=== PATIENT | female | born 1980 | race Caucasian/White ===

== ENCOUNTER 2017-12-17 04:11 | Emergency (ER) | payer BC ==
[2017-12-17 04:21] VITALS: O2SAT 97
[2017-12-17] MEDS ORDERED: Zofran 4 MG/2 ML VIAL IV ONE (04:22)
[2017-12-17] MEDS ORDERED: Sodium Chloride 0.9% 1000 ML 1,000 ML IV STA (04:22)
[2017-12-17] MEDS ORDERED: TORAdol 30 mg Injection IV ONE (04:22)
[2017-12-17] MEDS ORDERED: Sodium Chloride 0.9% 1000 ML 1,000 ML ONE (04:27)
[2017-12-17] MEDS ORDERED: TORAdol 30 mg Injection ONE (04:27)
[2017-12-17] MEDS ORDERED: Zofran 4 MG/2 ML VIAL ONE (04:27)
--- NOTE | 2017-12-17 04:29 | ERPHSYRPT ---
- History of Present Illness Time Seen by Provider: 12/17/17 04:22 Historian: patient Exam Limitations: no limitations Patient Subjective Stated Complaint: Left Flank Pain Triage Nursing Assessment: Pt presents to the ED with complaints of left flank pain beginning wednesday. Pt states she has been unable to sleep tonight due to pain. Pt states she has been treated outpatient for complaint by PCP. Pt denies fevers or other complaints. Pt is A&O x4, skin PWD, no distress noted. Physician History: Pt started c/o left flank pain 2 days ago, nauseated, had few episodes of diarrhea. She was seen in her doctor's office yesterday, KUB revealed 5 mm left UPJ stone. She started c/o more pain this morning, denies fever, chills, vomiting or urinary complaints, her last MP was one week ago, denies vaginal bleeding. Timing/Duration: day(s) (2) Activities at Onset: none Quality: sharpness Abdominal Pain Onset Location: flank (left) Severity of Pain-Max: severe Severity of Pain-Current: severe Modifying Factors: Improves With: nothing Associated Symptoms: diarrhea, nausea Previous symptoms: no prior history Allergies/Adverse Reactions: No Known Drug Allergies Allergy (Unverified 12/17/17 04:25) Hx Tetanus, Diphtheria Vaccination/Date Given: Yes Hx Influenza Vaccination/Date Given: Yes Hx Pneumococcal Vaccination/Date Given: No Immunizations Up to Date: No - Review of Systems Constitutional: No Symptoms Abdominal/Gastrointestinal: Nausea, Diarrhea Genitourinary Symptoms: Flank Pain All Other Systems: Reviewed and Negative - Past Medical History Pertinent Past Medical History: No Neurological History: No Pertinent History ENT History: No Pertinent History Cardiac History: Hypertension Respiratory History: No Pertinent History Endocrine Medical History: No Pertinent History Musculoskeletal History: No Pertinent History GI Medical History: No Pertinent History History: No Pertinent History Psycho-Social History: Anxiety, Depression Female Reproductive Disorders: No Pertinent History - Past Surgical History Past Surgical History: Yes Neuro Surgical History: No Pertinent History Cardiac: No Pertinent History Respiratory: No Pertinent History Gastrointestinal: No Pertinent History Genitourinary: No Pertinent History Musculoskeletal: No Pertinent History Female Surgical History: Section - Social History Smoking Status: Former smoker Exposure to second hand smoke: No Drug Use: none Patient Lives Alone: No - Female History Hx Last Menstrual Period: 12/10/2017 Hx Now: No - Nursing Vital Signs Nursing Vital Signs: Initial Vital Signs Temperature 98.4 F 12/17/17 04:17 Pulse Rate 99 H 12/17/17 04:17 Respiratory Rate 17 12/17/17 04:17 Blood Pressure 146/97 12/17/17 04:17 O2 Sat by Pulse Oximetry 97 12/17/17 04:17 Pain Scale Pain Intensity [Left Flank] 8 Pain Intensity 3 - Physical Exam General Appearance: no apparent distress Eye Exam: eyes nml inspection Ears, Nose, Throat Exam: normal ENT inspection Neck Exam: normal inspection Respiratory Exam: normal breath sounds, lungs clear Cardiovascular Exam: regular rate/rhythm, normal heart sounds, normal peripheral pulses Gastrointestinal/Abdomen Exam: soft, normal bowel sounds, tenderness (LUQ, milkd ) Back Exam: CVA tenderness (left) Extremity Exam: normal inspection Neurologic Exam: alert, oriented x 3 Skin Exam: normal color, warm, dry Lymphatic Exam: No adenopathy SpO2 Interpretation: normal SpO2: 97 Oxygen Delivery: Room Air - CT Exams Abdomen/Pelvis CT Interpretation: Other (Left hydronephrosis, 5x6x6 mm UPJ stone, fluid stranding around left kidney.) Ordered Tests: Active Orders 24 hr Category Date Time Status IV Insertion STAT Care 12/17/17 04:22 Active ABDOMEN AND PELVIS W/0 CONTRAS [CT] Stat Exams 12/17/17 04:23 Taken CBC W DIFF Stat Lab 12/17/17 04:22 Completed CMP Stat Lab 12/17/17 04:22 Completed HCG,QUALITATIVE URINE Stat Lab 12/17/17 04:32 Completed LIPASE Stat Lab 12/17/17 04:22 Completed UA W/ MICROSCOPIC Stat Lab 12/17/17 04:32 Completed Medication Summary Discontinued Medications Generic Name Dose Route Start Last Admin Trade Name Freq PRN Reason Stop Dose Admin Sodium Chloride 1,000 mls @ 999 mls/hr 12/17/17 04:22 12/17/17 04:36 Sodium Chloride 0.9% 1000 Ml IV 12/17/17 05:22 999 mls/hr .Q1H1M STA Administration Sodium Chloride Confirm 12/17/17 04:27 Sodium Chloride 0.9% 1000 Ml Administered 12/17/17 04:28 Dose 1,000 mls @ ud .ROUTE .STK-MED ONE Ketorolac Tromethamine 30 mg 12/17/17 04:22 12/17/17 04:35 Toradol 30 Mg Injection IV 12/17/17 04:23 30 mg STAT ONE Administration Ketorolac Tromethamine Confirm 12/17/17 04:27 Toradol 30 Mg Injection Administered 12/17/17 04:28 Dose 30 mg .ROUTE .STK-MED ONE Ondansetron HCl 4 mg 12/17/17 04:22 12/17/17 04:35 Zofran 4 Mg/2 Ml Vial IV 12/17/17 04:23 4 mg STAT ONE Administration Ondansetron HCl Confirm 12/17/17 04:27 Zofran 4 Mg/2 Ml Vial Administered 12/17/17 04:28 Dose 4 mg .ROUTE .STK-MED ONE Lab/Rad Data: Laboratory Result Diagrams 12/17/17 04:22 12/17/17 04:22 Laboratory Results 12/17/17 12/17/17 12/17/17 Range/Units 04:32 04:32 04:22 WBC (4.0-10.5) K/mm3 RBC (4.1-5.4) M/mm3 Hgb (12.0-16.0) gm/dl Hct (35-47) % MCV (78-100) fl MCH (26-32) pg MCHC (32-36) g/dl RDW (11.5-14.0) % Plt Count (150-450) K/mm3 MPV (6-9.5) fl Gran % (36.0-66.0) % Lymphocytes % (24.0-44.0) % Monocytes % (0.0-12.0) % Eosinophils % (0.00-5.0) % Basophils % (0.0-0.4) % Basophils # (0-0.4) Sodium 138 (136-145) mEq/L Potassium 3.7 (3.5-5.1) mEq/L Chloride 104 (98-107) mEq/L Carbon Dioxide 21.9 (21-32) mEq/L Anion Gap 15.8 H (5-15) MEQ/L BUN 14 (9-20) mg/dL Creatinine 1.21 (0.55-1.30) mg/dl Estimated GFR 54 ML/MIN Glucose 110 (70-110) MG/DL Calcium 9.0 (8.5-10.1) mg/dL Total Bilirubin 0.30 (0.2-1.0) mg/dL AST 27 (15-37) U/L ALT 21 (12-78) U/L Alkaline Phosphatase 96 (46-116) U/L Serum Total Protein 8.3 H (6.4-8.2) gm/dL Albumin 4.5 (3.4-5.0) g/dL Lipase 141 (73-393) U/L Ur Collection Type VOID Urine Color LT.YELLOW (YELLOW) Urine Appearance CLEAR (CLEAR) Urine pH 8.0 (5-6) Ur Specific [place] 1.005 (1.005-1.025) Urine Protein NEGATIVE (Negative) Urine Ketones NEGATIVE (NEGATIVE) Urine Blood 50 (0-5) Neftali/ul Urine Nitrite NEGATIVE (NEGATIVE) Urine Bilirubin NEGATIVE (NEGATIVE) Urine Urobilinogen NORMAL (0-1) mg/dL Ur Leukocyte Esterase NEGATIVE (NEGATIVE) Urine Microscopic RBC 5-10 (0-2) /HPF Urine Microscopic WBC 0-2 (0-5) /HPF Ur Epithelial Cells FEW (FEW) /HPF Urine Bacteria FEW (NEGATIVE) /HPF Urine Culture Reflexed NO (NO) Urine Glucose NEGATIVE (NEGATIVE) mg/dL Urine HCG, Qual NEGATIVE (Negative) Specimen Received 12/17/17 0445 12/17/17 Range/Units 04:22 WBC 13.9 H (4.0-10.5) K/mm3 RBC 5.32 (4.1-5.4) M/mm3 Hgb 14.5 (12.0-16.0) gm/dl Hct 44.4 (35-47) % MCV 83.5 (78-100) fl MCH 27.3 (26-32) pg MCHC 32.7 (32-36) g/dl RDW 14.9 H (11.5-14.0) % Plt Count 263 (150-450) K/mm3 MPV 11.3 H (6-9.5) fl Gran % 82.8 H (36.0-66.0) % Lymphocytes % 12.6 L (24.0-44.0) % Monocytes % 3.8 (0.0-12.0) % Eosinophils % 0.6 (0.00-5.0) % Basophils % 0.2 (0.0-0.4) % Basophils # 0.03 (0-0.4) Sodium (136-145) mEq/L Potassium (3.5-5.1) mEq/L Chloride (98-107) mEq/L Carbon Dioxide (21-32) mEq/L Anion Gap (5-15) MEQ/L BUN (9-20) mg/dL Creatinine (0.55-1.30) mg/dl Estimated GFR ML/MIN Glucose (70-110) MG/DL Calcium (8.5-10.1) mg/dL Total Bilirubin (0.2-1.0) mg/dL AST (15-37) U/L ALT (12-78) U/L Alkaline Phosphatase (46-116) U/L Serum Total Protein (6.4-8.2) gm/dL Albumin (3.4-5.0) g/dL Lipase (73-393) U/L Ur Collection Type Urine Color (YELLOW) Urine Appearance (CLEAR) Urine pH (5-6) Ur Specific [place] (1.005-1.025) Urine Protein (Negative) Urine Ketones (NEGATIVE) Urine Blood (0-5) Neftali/ul Urine Nitrite (NEGATIVE) Urine Bilirubin (NEGATIVE) Urine Urobilinogen (0-1) mg/dL Ur Leukocyte Esterase (NEGATIVE) Urine Microscopic RBC (0-2) /HPF Urine Microscopic WBC (0-5) /HPF Ur Epithelial Cells (FEW) /HPF Urine Bacteria (NEGATIVE) /HPF Urine Culture Reflexed (NO) Urine Glucose (NEGATIVE) mg/dL Urine HCG, Qual (Negative) Specimen Received - Progress Progress: improved Progress Note: 12/17/17 06:03 Improved, pain free, afebrile, denies nausea, stable. I discussed the CT and lab results with her, she states, she has follow up appointment in her practitioner's office today and they are arranging an appointment with Dr Ospina Urologist. I will discharge her on Flomax, with instructions, to follow up with her doctor and Urologist, and return if severe pain, vomiting, or fever> 101 F! - Departure Time of Disposition: 06:06 Departure Disposition: Home Clinical Impression: Ureteral stone with hydronephrosis Clinical Impression: (Ruled Out): Ureteral stone Condition: Stable Critical Care Time: No Referrals: MAURY DELUNA [Primary Care Provider] - Instructions: Renal Colic Additional Instructions: Rest x 2-3 days, drink plenty of fluids, return if severe pain, vomiting, fever > 101F!, strain every urine and follow up with your practitioner and Urologist! Forms: Work/School Release Form Prescriptions: Ondansetron [Zofran Odt] 4 mg PO Q6H PRN PRN 5 Days #10 tab.rapdis PRN Reason: Nausea/Vomiting Tamsulosin HCl 0.4 mg [Flomax 0.4 MG] 5 mg PO DAILY #5 cap
[2017-12-17 04:47] LABS: BASOPHIL % 0.2 % (0.0-0.4); Basophil (Absolute #) 0.03 (0-0.4); Eosinophil % 0.6 % (0.00-5.0); Eosinophil (Absolute #) 0.08 (0-0.5); Granulocyte Absolute (ANC) 11.47 (1.4-6.9); Granulocytes % 82.8 % (36.0-66.0); Hematocrit 44.4 % (35-47); Hemoglobin 14.5 gm/dl (12.0-16.0); Lymphocyte (Absolute #) 1.75 (1.0-4.6); Lymphocytes % 12.6 % (24.0-44.0); Mean Cell Volume 83.5 fl (78-100); Mean Corpuscular Hemoglobin 27.3 pg (26-32); Mean Corpuscular Hgb Concent. 32.7 g/dl (32-36); Mean Platelet Volume 11.3 fl (6-9.5); Monocyte (Absolute #) 0.53 (0.0-1.3); Monocytes % 3.8 % (0.0-12.0); Platelet Count 263 K/mm3 (150-450); Red Blood Count 5.32 M/mm3 (4.1-5.4); Red Cell Distribution Width 14.9 % (11.5-14.0); White Blood Count 13.9 K/mm3 (4.0-10.5)
[2017-12-17 04:52] LABS: Appearance CLEAR (CLEAR); Bilirubin NEGATIVE (NEGATIVE); Blood 50 Ery/ul (0-5); Glucose NEGATIVE (NEGATIVE); Ketones NEGATIVE (NEGATIVE); Leukocyte Esterase NEGATIVE (NEGATIVE); Nitrite NEGATIVE (NEGATIVE); Protein,Urine Dip NEGATIVE (Negative); Specific Gravity 1.005 (1.005-1.025); Urobilinogen NORMAL mg/dL (0-1)
[2017-12-17 04:53] LABS: Bacteria FEW /HPF (NEGATIVE); Epithelial Cells FEW /HPF (FEW); WBC 0-2 /HPF (0-5)
[2017-12-17 05:04] LABS: ALBUMIN 4.5 g/dL (3.4-5.0); ANION GAP 15.8 MEQ/L (5-15); BILIRUBIN,TOTAL 0.3 mg/dL (0.2-1.0); Carbon Dioxide 21.9 mEq/L (21-32); Creatinine 1 1.21 mg/dl (0.55-1.30); Potassium 3.7 mEq/L (3.5-5.1); Total Protein 8.3 gm/dL (6.4-8.2)
[2017-12-17 05:37] VITALS: BP 116/79; PULSE 66
[2017-12-17] MEDS ORDERED: Flomax 0.4 MG PO ONE (06:05)
[2017-12-17] MEDS ORDERED: Flomax 0.4 MG ONE (06:11)
--- NOTE | 2017-12-17 09:16 | XRAY ---
Indication: Left flank pain. Multiple contiguous axial images obtained through the abdomen and pelvis without contrast as ordered. Comparison: None Lung bases demonstrates minimal bibasilar dependent atelectasis. No infiltrate or effusion. Heart is not enlarged. 5 mm proximal left ureteral calculus, approximately the L2 level. Left kidney is mildly hydronephrotic with minimal perinephric stranding consistent with partial obstructive uropathy. Additional bilateral punctate calculi. No evidence for right-sided obstructive uropathy. Noncontrasted stomach and bowel loops appear nonobstructed. Normal appendix. No free fluid/air. Mild fatty liver. Remaining liver, gallbladder, spleen, pancreas, adrenal glands, kidneys, ureters, bladder, uterus, and aorta appear unremarkable for noncontrast exam. Osseous structures intact with minimal double curvature scoliosis. Impression: 1. 5 mm proximal left ureteral calculus producing partial obstruction as detailed. Calculus corresponds to the KUB finding one day earlier. Additional bilateral renal micro-calculi. 2. Mild fatty liver. Comment: Preliminary interpretation was made by [facility]. No critical discrepancy. CTDI 28.63
== END 2017-12-17 06:18 | disposition home or self-care (01) ==
LOC: ED 04:11
DX: N13.2 Hydronephrosis with renal and ureteral calculous obstruction (principal); R10.9 Unspecified abdominal pain; R19.7 Diarrhea, unspecified; R11.0 Nausea
CPT/HCPCS: 36000; 36415; 74176; 80053; 81000; 83690; 84703; 85025; 96360; 96374; 99284; J1885; J2405; A9270-GY

== ENCOUNTER 2023-11-11 23:44 | Emergency (ER) | payer BC ==
--- NOTE | 2023-11-11 23:56 | ERPHSYRPT ---
- History of Present Illness Time Seen by Provider: 11/11/23 23:55 Historian: patient Exam Limitations: no limitations Physician History: 43 y/o white female patient of DAMIAN Lowe, presents with 2 day h/o foul odor urine, frequency, urgency and dysuria and nocturia. right flank pain today. sx not better. h/o ureteolithiasis on left and pyelonephritis in the past. no cp. no sob. no v/d. h/o dm, htn, hyperlipidemia and anxiety. Quality: aching Abdominal Pain Onset Location: flank (right) Pain Radiation: no radiation Severity of Pain-Max: moderate Severity of Pain-Current: mild Associated Symptoms: No chest pain, No diarrhea, No fever/chills, No nausea, No shortness of breath, No vomiting Previous symptoms: same symptoms as today, no recent treatment Allergies/Adverse Reactions: No Known Drug Allergies Allergy (Verified 11/11/23 23:57) Home Medications: Atorvastatin Calcium 20 mg PO HS 11/11/23 [History] Desvenlafaxine [Desvenlafaxine ER] 50 mg PO HS 11/11/23 [History] Labetalol HCl 100 mg [Trandate 100 MG] 10 mg PO HS 11/11/23 [History] Tirzepatide [Mounjaro] 0.5 ml SQ WEEKLY 11/11/23 [History] Hx Tetanus, Diphtheria Vaccination/Date Given: Yes Hx Influenza Vaccination/Date Given: Yes Hx Pneumococcal Vaccination/Date Given: No Travel Risk - International Travel Have you traveled outside of the country in past 3 weeks: No - Coronavirus Screening Are you exhibiting any of the following symptoms?: No Close contact with a COVID-19 positive Pt in past 14-21 Days: No - Review of Systems Constitutional: No Symptoms Eyes: No Symptoms Ears, Nose, & Throat: No Symptoms Respiratory: No Symptoms Cardiac: No Symptoms Abdominal/Gastrointestinal: Abdominal Pain, No Nausea Genitourinary Symptoms: Dysuria, Frequency, Urgency, Flank Pain Musculoskeletal: No Symptoms Skin: No Symptoms Neurological: No Symptoms Psychological: No Symptoms Endocrine: No Symptoms Hematologic/Lymphatic: No Symptoms Immunological/Allergic: No Symptoms All Other Systems: Reviewed and Negative - Past Medical History Pertinent Past Medical History: No Neurological History: No Pertinent History ENT History: No Pertinent History Cardiac History: Hypertension Respiratory History: No Pertinent History Endocrine Medical History: No Pertinent History Musculoskeletal History: No Pertinent History GI Medical History: No Pertinent History History: No Pertinent History Psycho-Social History: Anxiety, Depression Female Reproductive Disorders: No Pertinent History - Past Surgical History Past Surgical History: Yes Neuro Surgical History: No Pertinent History Cardiac: No Pertinent History Respiratory: No Pertinent History Gastrointestinal: No Pertinent History Genitourinary: No Pertinent History Musculoskeletal: No Pertinent History Female Surgical History: Section - Social History Smoking Status: Former smoker Exposure to second hand smoke: No Drug Use: none Patient Lives Alone: No - Nursing Vital Signs Nursing Vital Signs: Initial Vital Signs Pulse Rate 110 H 11/12/23 00:00 Respiratory Rate 18 11/12/23 00:00 Blood Pressure 127/89 11/12/23 00:00 O2 Sat by Pulse Oximetry 100 11/12/23 00:00 Pain Scale Pain Intensity 4 - Physical Exam General Appearance: no apparent distress, alert, anxiety Eye Exam: PERRL/EOMI, eyes nml inspection Ears, Nose, Throat Exam: normal ENT inspection, moist mucous membranes Neck Exam: normal inspection, non-tender, supple, full range of motion Respiratory Exam: normal breath sounds, lungs clear, airway intact, No chest tenderness, No respiratory distress Cardiovascular Exam: regular rate/rhythm, normal heart sounds, normal peripheral pulses Gastrointestinal/Abdomen Exam: soft, normal bowel sounds, tenderness (suprapubic), guarding, No rebound Pelvic Exam: not done Rectal Exam: not done Back Exam: normal inspection, normal range of motion, CVA tenderness (right) Neurologic Exam: alert, oriented x 3, cooperative, continuity clerk II-XII nml as tested, normal mood/affect, nml cerebellar function, nml station & gait, sensation nml Skin Exam: normal color, warm, dry Lymphatic Exam: No adenopathy SpO2 Interpretation: normal O2 Delivery: Room Air - Course Nursing assessment & vital signs reviewed: Yes Ordered Tests: Active Orders 24 hr Category Date Time Status IV Insertion STAT Care 11/11/23 23:57 Active ABDOMEN AND PELVIS W/0 CONTRAS [CT] Stat Exams 11/11/23 23:56 Completed AMYLASE Stat Lab 11/11/23 23:56 Completed CBC W DIFF Stat Lab 11/11/23 23:56 Completed CMP Stat Lab 11/11/23 23:56 Completed CULTURE,URINE Stat Lab 11/11/23 23:52 Received LIPASE Stat Lab 12/14/23 23:56 Completed UA W/RFX UR CULTURE Stat Lab 11/11/23 23:52 Completed Medication Summary Generic Name Dose Route Start Last Admin Trade Name Daniele PRN Reason Stop Dose Admin Ceftriaxone Sodium/Dextrose 1 g in 50 mls @ 100 mls/hr 11/12/23 01:29 Rocephin 1 Gm-D5w 50 Ml Bag IV 11/12/23 01:58 STAT STA Discontinued Medications Generic Name Dose Route Start Last Admin Trade Name Daniele PRN Reason Stop Dose Admin Hydromorphone HCl 1 mg 11/12/23 00:26 11/12/23 00:39 Hydromorphone 1 Mg/1ml Inj IV 11/12/23 00:27 Not Given STAT ONE Sodium Chloride 1,000 mls @ 999 mls/hr 11/11/23 23:57 11/12/23 01:07 Sodium Chloride 0.9% 1000 Ml IV 11/12/23 00:57 Infused .Q1H1M STA Infusion Sodium Chloride Confirm 11/12/23 00:02 Sodium Chloride 0.9% 1000 Ml Administered 11/12/23 00:03 Dose 1,000 mls @ ud .ROUTE .STK-MED ONE Ketorolac Tromethamine 30 mg 11/12/23 00:26 11/12/23 00:42 Ketorolac Tromethamine 30 Mg/Ml Inj IV 11/12/23 00:27 30 mg STAT ONE Administration Ketorolac Tromethamine Confirm 11/12/23 00:40 Ketorolac Tromethamine 30 Mg/Ml Inj Administered 11/12/23 00:41 Dose 30 mg .ROUTE .STK-MED ONE Ondansetron HCl 4 mg 11/12/23 00:26 11/12/23 00:42 Ondansetron Hcl 4 Mg/2 Ml Vial IV 11/12/23 00:27 4 mg STAT ONE Administration Ondansetron HCl Confirm 11/12/23 00:40 Ondansetron Hcl 4 Mg/2 Ml Vial Administered 11/12/23 00:41 Dose 4 mg .ROUTE .STK-MED ONE Lab/Rad Data: Laboratory Result Diagrams 11/11/23 00:00 11/11/23 00:00 Laboratory Results 11/11/23 11/11/23 11/11/23 Range/Units 00:00 00:00 00:00 WBC 14.2 H (4.0-10.5) x10^3/uL RBC 5.41 H (4.1-5.4) x10^6/uL Hgb 14.6 (12.0-16.0) g/dL Hct 46.0 (35-47) % MCV 85.0 (78-100) fL MCH 27.0 (26-32) pg MCHC 31.7 L (32-36) g/dL RDW 14.4 H (11.5-14.0) % Plt Count 250 (150-450) x10^3/uL MPV 11.3 H (7.5-11.0) fL Gran % 65.9 (36.0-66.0) % Immature Gran % (Auto) 0.4 (0.00-0.4) % Nucleat RBC Rel Count 0.0 (0.00-0.1) % Eos # (Auto) 0.12 (0-0.5) x10^3/uL Immature Gran # (Auto) 0.05 H (0.00-0.03) x10^3u/L Absolute Lymphs (auto) 3.89 (1.0-4.6) x10^3/uL Absolute Monos (auto) 0.70 (0.0-1.3) x10^3/uL Absolute Nucleated RBC 0.00 (0.00-0.01) x10^3u/L Lymphocytes % 27.5 (24.0-44.0) % Monocytes % 4.9 (0.0-12.0) % Eosinophils % 0.8 (0.00-5.0) % Basophils % 0.5 (0.0-0.4) % Absolute Granulocytes 9.34 H (1.4-6.9) x10^3/uL Basophils # 0.07 (0-0.4) x10^3/uL Sodium 138 (137-145) mmol/L Potassium 3.6 (3.5-5.1) mmol/L Chloride 100 (98-107) mmol/L Carbon Dioxide 27 (22-30) mmol/L Anion Gap 14.9 (5-15) MEQ/L BUN 8 (7-17) mg/dL Creatinine 0.65 (0.52-1.04) mg/dL Estimated GFR 112.7 ML/MIN Glucose 109 H (74-106) mg/dL Calcium 9.7 (8.4-10.2) mg/dL Total Bilirubin 0.60 (0.2-1.3) mg/dL AST 37 H (14-36) U/L ALT 23 (0-35) U/L Alkaline Phosphatase 91 (38-126) U/L Serum Total Protein 8.1 (6.3-8.2) g/dL Albumin 4.8 (3.5-5.0) g/dL Amylase 74 (30-110) U/L Lipase 190 (23-300) U/L Urine Color Yellow (Yellow) Urine Appearance Cloudy A (Clear) Urine pH 5.5 (4.6-8.0) Ur Specific [place] 1.015 (1.005-1.030) Urine Protein 300 A (Negative) Urine Glucose (UA) Negative (Negative) mg/dL Urine Ketones Negative (Negative) Urine Blood Large A (Negative) Urine Nitrite Positive A (Negative) Urine Bilirubin Negative (Negative) Urine Urobilinogen 0.2 (0.2) mg/dL Ur Leukocyte Esterase Moderate A (Negative) Urine Microscopic RBC >100 A (0-5) /HPF Urine Microscopic WBC >100 A (0-5) /HPF Ur Epithelial Cells None Seen (None Seen) /HPF Urine Bacteria Moderate A (None Seen) /HPF Urine Culture Reflexed YES (NO) - Progress Progress: improved, re-examined Progress Note: 11/12/23 00:42 mod complexity medical issue. review hpi, pmx, list of medications and drug allergies, physical exam findings. w/up iv, ivf, iv zofran, iv toradol, cbc, cmp, amylase, lipase, ua, ct a/p without contrast 11/12/23 01:31 i interpret lab results. + uti. ct scan a/p without interpreted by radiologist. bilat nonobstruction renal calculi. no obstructive uropathy 11/12/23 01:32 pt as rx cipro at pharmacy Counseled pt/family regarding: lab results, diagnosis, need for follow-up, rad results Medical Desision Making - Diagnostic Testing Diagnostic test were ordered, analyzed, and reviewed by me: Yes Radiological Interpretation: Reviewed by me, Teleradiologist Report - Departure Departure Disposition: Home Clinical Impression: UTI (urinary tract infection) Condition: Stable Critical Care Time: No Referrals: MAURY LOWE NP [NON-STAFF PHY W/O PRIVILEGES] - Follow up/PCP as directed Additional Instructions: drink plenty of fluids. take your antibiotics today as prescribed. use tylenol and ibuprofen for pain and fever control
[2023-11-11] MEDS ORDERED: Sodium Chloride 0.9% 1000 ML 1,000 ML IV STA (23:57)
[2023-11-12] MEDS ORDERED: Sodium Chloride 0.9% 1000 ML 1,000 ML ONE (00:02)
[2023-11-12 00:05] VITALS: RESP 18; TEMP 97.4
[2023-11-12] MEDS ORDERED: TORAdol 30 mg Injection IV ONE (00:26)
[2023-11-12] MEDS ORDERED: Zofran 4 MG/2 ML VIAL IV ONE (00:26)
[2023-11-12] MEDS ORDERED: Hydromorphone 1 mg/ml Injection IV ONE (00:26)
[2023-11-12 00:36] LABS: Appearance Cloudy (Clear); Bilirubin Negative (Negative); Blood Large (Negative); Glucose, Urine Negative (Negative); Ketones Negative (Negative); Leukocyte Esterase Moderate (Negative); Nitrite Positive (Negative); Ph 5.5 (4.6-8.0); Protein,Urine Dip 300 (Negative); Specific Gravity 1.015 (1.005-1.030); Urobilinogen 0.2 mg/dL (0.2)
[2023-11-12] MEDS ORDERED: TORAdol 30 mg Injection ONE (00:40)
[2023-11-12] MEDS ORDERED: Zofran 4 MG/2 ML VIAL ONE (00:40)
[2023-11-12 00:48] LABS: RBC >100 /HPF (0-5); WBC >100 /HPF (0-5)
[2023-11-12 00:49] LABS: ADD URINE CULTURE? YES (NO); Bacteria Moderate /HPF (None Seen); Epithelial Cells None Seen /HPF (None Seen)
--- NOTE | 2023-11-12 01:05 | XRAY ---
CLINICAL HISTORY:right flank pain COMPARISON:Prior CT dated 12/17/2017. TECHNIQUE:Contiguous, multislice, non-contrast CT scan of the abdomen and pelvis was performed in the axial plane with multiplanar reconstructions. FINDINGS: Average sized liver measuring about 13.8 cm in craniocaudal axis showing homogeneous attenuation with no obvious focal mass lesion within the limitations of non-contrast study. No intrahepatic biliary dilatation. Gallbladder shows no definite calculi inside. Pancreas and spleen appear unremarkable. No adrenal mass. Both kidneys appear normal in size, shows normal contour and attenuation. Bilateral renal calculi, right renal calculus at midpole measuring about 5 mm and small left renal calculus measuring about 1.8 mm. Another tiny concretion is seen in the lower pole of left kidney. No ascites. No para-aortic lymphadenopathy. Imaged bowel structures appear unremarkable. No bowel dilatation. Appendix is visualized and appears within normal limits. Partially filled urinary bladder, appears free from intraluminal stones, mass or diverticular outpouching. Atherosclerotic calcification of the iliac vessels. Normal-sized uterus. No adnexal mass. Degenerative changes in the visualized spine showing Schmorl's nodes at multiple levels. Degenerative disc disease mainly at L4-L5 level. Visualized sections of lower chest shows no focal mass or consolidation. IMPRESSION: 1. Limited organ parenchymal evaluation within the limitations of non-contrast study. 2. Bilateral non-obstructing renal calculi, largest in the right kidney measuring about 5 mm. 3. In comparison with the prior study, no signs of obstructive uropathy. Bilateral renal calculi are renoted, however no evidence of left-sided hydronephrosis and ureteric calculus which were noted in prior study. 4. Rest of the findings as detailed above. Electronically Signed by: Russell Meredith MD. (11/12/2023 01:00:45 EST)
[2023-11-12] MEDS ORDERED: ROCEPHIN 1 Gm-D5w 50 ml Bag** 1 G/50 ML IVPB IV STA (01:29)
[2023-11-12] MEDS ORDERED: ROCEPHIN 1 Gm-D5w 50 ml Bag** 1 G/50 ML IVPB IV ONE (01:31)
[2023-11-12 02:02] VITALS: BP 124/81; PULSE 99; O2SAT 97
== END 2023-11-12 02:19 | disposition home or self-care (01) ==
LOC: ED 23:44
DX: N39.0 Urinary tract infection, site not specified (principal); R30.0 Dysuria; R35.0 Frequency of micturition; R10.9 Unspecified abdominal pain; E11.9 Type 2 diabetes mellitus without complications; I10 Essential (primary) hypertension; E78.5 Hyperlipidemia, unspecified; Z79.85 Long-term (current) use of injectable non-insulin antidiabetic drugs; Z79.899 Other long term (current) drug therapy
CPT/HCPCS: 36000; 36415; 74176; 80053; 81001; 82150; 83690; 85025; 87077; 87086; 87186; 96360; 96374; 96375; 99284; J0696; J1885; J2405